=== PATIENT | female | born 1960 | race Caucasian/White ===

== ENCOUNTER 2019-11-30 07:52 | Emergency (ER) | payer OTHER ==
[2019-11-30] MEDS ORDERED: BUPIVACAINE HCL 0.25% /EPINEPHRINE INJ/PF 30 ML SDV INJ ONE (08:51)
[2019-11-30 09:49] VITALS: BP 164/78
--- NOTE | 2019-11-30 09:59 | ER Document Report ---
ED General - General Chief Complaint: Toothache Stated Complaint: FACIAL SWELLING Time Seen by Provider: 11/30/19 08:35 Primary Care Provider: JANEY MOLINA MD [Primary Care Provider] - Follow up as needed Notes: 59-year-old female with past medical history of diabetes presenting today with right-sided tooth pain starting approximately 2 days ago. She has a fractured tooth on the upper jaw. She has a upcoming shoulder surgery that she needs to get dental pain evaluated and treated for prior to getting surgery. She has appoint with her dentist next week. TRAVEL OUTSIDE OF THE [place] IN LAST 30 DAYS: No - Related Data Allergies/Adverse Reactions: sulfamethoxazole [From Bactrim] Allergy (Verified 11/30/19 09:32) trimethoprim [From Bactrim] Allergy (Verified 11/30/19 09:32) Past Medical History - Social History Smoking Status: Current Every Day Smoker Chew tobacco use (# tins/day): No Frequency of alcohol use: Occasional Drug Abuse: None Family History: Reviewed & Not Pertinent Patient has homicidal ideation: No Review of Systems - Review of Systems Constitutional: No symptoms reported EENT: See HPI Cardiovascular: No symptoms reported Respiratory: No symptoms reported Gastrointestinal: No symptoms reported Genitourinary: No symptoms reported Female Genitourinary: No symptoms reported Musculoskeletal: No symptoms reported Skin: No symptoms reported Hematologic/Lymphatic: No symptoms reported Neurological/Psychological: No symptoms reported Physical Exam - Vital signs Vitals: Temp 99.0 F 11/30/19 07:53 Interpretation: Hypertensive - Notes Notes: Adult General: GENERAL: Alert, interacts well. No acute distress HEAD: Normocephalic, atraumatic EYES: Pupils equal, round and reactive to light. Extraocular movements intact. ENT: Fractured right upper incisor- tenderness along gumline above tooth. Mild cheek swelling. Oral mucosa moist, tongue midline. Oropharynx unremarkable. Airway patent. Nares patent. No tenderness along parotid. NECK: Full range of motion. Supple. Trachea midline. No lymphadenopathy. LUNGS: Clear to auscultation bilaterally, no wheezes, rales, or rhonchi. No respiratory distress. Nontender chest wall. HEART: Regular rate and rhythm. No murmurs, rubs or gallops. ABDOMEN: Soft, nontender. Nondistended. GENITOURINARY: Deferred EXTREMITIES: Moves all 4 extremities spontaneously. No cyanosis. BACK: No cervical, thoracic, lumbar midline tenderness. No saddle anesthesia, normal distal neurovascular exam. Moves all extremities with full range of motion. NEUROLOGICAL: Alert and oriented x3. Normal speech. Strength 5/ 5 in all extremities. PSYCH: Normal affect, normal mood. SKIN: Warm, dry, normal turgor. No rashes or lesions noted. Course - Re-evaluation Re-evalutation: 11/30/19 22:13 You have a tooth abscess. I discussed options to alleviate pain. Patient desire dental block. Right supraperiosteal block performed using bupivocaine. 2ml's were injected into the right mucobuccal fold. Patient tolerated procedure. Patient reports a decrease in her pain. Patient also was able to call another dentist and get seen tomorrow. I will prescribe her antibiotics. She is to keep her dental appointment tomorrow. Return precautions discussed. Patient ac knowledges and verbalizes understanding of instructions and plan. All questions answered. - Vital Signs Vital signs: Temp Pulse Resp BP Pulse Ox 99.0 F 88 18 164/78 H 99 11/30/19 07:53 11/30/19 09:48 11/30/19 09:48 11/30/19 09:48 11/30/19 09:48 Discharge - Discharge Clinical Impression: Tooth abscess Condition: Stable Disposition: HOME, SELF-CARE Instructions: Penicillin V K ([facility]) Additional Instructions: You have a tooth abscess. We have received a nerve block type alleviate the pain. You have been prescribed an antibiotic. Please take the medication as prescribed. Please follow-up with your dentist appointment tomorrow. Please return the emergency department for worsening symptoms or development of new symptoms. Prescriptions: Penicillin V Potassium [Penicillin Vk 500 mg Tablet] 500 mg PO BID 4 Days #8 tablet Forms: Elevated Blood Pressure Referrals: JANEY MOLINA MD [Primary Care Provider] - Follow up as needed
== END 2019-11-30 10:22 | disposition home or self-care (01) ==
LOC: ER 07:52
DX: K04.7 Periapical abscess without sinus (principal); K08.89 Other specified disorders of teeth and supporting structures; F17.200 Nicotine dependence, unspecified, uncomplicated; Z88.1 Allergy status to other antibiotic agents
CPT/HCPCS: 99282; 64400; J3490